=== PATIENT | male | born 1960 | race Caucasian/White ===

== ENCOUNTER 2020-04-19 21:50 | Inpatient (IN) | payer OTHER, SELFPAY ==
[2020-04-19] VITALS (9 sets, daily range): BP systolic 127–149; BP diastolic 82–114; PULSE 68–132; RESP 14–24; TEMP 36.4–36.5; O2SAT 94–99; BMI 29.0
--- NOTE | 2020-04-19 21:54 | XR_ITS ---
WS: [id number] PORTABLE CHEST HISTORY: Right-sided chest pain with nausea. COMPARISON: 09/22/2018 Lungs are clear and well expanded. No pleural effusion or pneumothorax. Cardiac size: Normal. Mediastinum/Aorta: Normal mediastinum. No osseous abnormality seen. XR/XR chest 1V portable [id number] IMPRESSION: Unremarkable portable chest.
[2020-04-19] MEDS: heparin 5,000 unit/mL INJ 1 mL 5000 UNIT IVP (22:04)
[2020-04-19] MEDS: ticagrelor 90 mg Tablet 180 MG PO (22:04)
[2020-04-19 22:06] LABS: Basophils # 0.1 10^3/uL (0.0-0.1); Basophils % 0.7 %; Eosinophils # 0.3 10^3/uL (0.0-0.8); Eosinophils % 2.9 %; Hematocrit 45.6 % (42.0-52.0); Hemoglobin 14.6 g/dL (11.7-16.6); Lymphocytes # 3.3 10^3/uL (0.8-4.8); Lymphocytes % 33.2 %; Mean Corpuscular Hemoglobin 27.5 pg (28.0-34.0); Mean Platelet Volume 9.1 fL (7.4-10.4); Monocytes # 0.8 10^3/uL (0.2-0.9); Monocytes % 8.3 %; Neutrophils # 5.43 10^3/uL (1.8-7.7); Neutrophils % 54.6 %; Nucleated Red Blood Cells % 0 %; Platelet Count 289 10^3/cmm (130-400); Red Cell Distribution Width 13.3 % (12.1-15.1)
[2020-04-19] MEDS: sodium chloride 0.9% 1,000 ML 999 ML IV (22:07)
--- NOTE | 2020-04-19 22:07 | W.ED.CHESTPA ---
HPI - Chest Pain General: Chief Complaint: Chest Pain Stated Complaint: chest pain Time Seen by Provider: 04/19/20 21:54 History of Present Illness: HPI narrative: 59-year-old male presents with right-sided chest discomfort, since yesterday. Says that he is hurting in his chest, and right shoulder. He says that he had a similar pain last year, was seen in the ER, and it ended up being a nerve problem . He said that he got some medicine in his IV at that point and it stopped. He says this pain is different, and that it does not go down his arm. He has not had significant shortness of breath or nausea. He has been diaphoretic. Does not have a prior history of coronary disease. MD complaint: chest pain Onset (ago): day(s) (2) Onset: during rest Pain location: right chest Pain radiation: none Quality: tightness, sharp and other (Comes in waves) Relieving factors: nothing Exacerbating factors: nothing Associated symptoms: Reports diaphoresis; Deny abdominal pain, dyspnea, fever(s), nausea, palpitations or vomiting Treatment prior to arrival: other (Fentanyl) Review of Systems Const: Reports: diaphoresis; Denies: fever(s) Eyes: Denies: change in vision ENMT: Denies: swelling of lips/tongue or sinus pain Card: Reports: chest pain; Denies: palpitations, irregular heart rhythm or swelling of feet/ankles Resp: Denies: dyspnea GI: Denies: abdominal pain, nausea or vomiting : Denies: difficulty urinating, dysuria or hematuria Musc: Denies: neck pain or back pain Skin/Breast: Denies: rash, pruritus or erythema Neuro: Denies: headache(s), dizziness or vertigo Psych: Denies: anxiety [facility] ED PFSH: Medical History (Updated 04/20/20 @ 00:33 by Ezequiel Estevez MD) Hypertension Neck pain Surgical History (Updated 04/20/20 @ 00:08 by Ezequiel Estevez MD) H/O neck surgery Family History (Updated 04/20/20 @ 00:33 by Ezequiel Estevez MD) Father Stroke Social History (Updated 04/20/20 @ 00:34 by Ezequiel Estevez MD) Smoking and tobacco status: current every day smoker cigarettes [ Other cigarette details: 1-.5 pack/day for last 30 years ] Alcohol intake: current Alcohol intake frequency: holidays/special occasions only Substance/Drug Use: never Lives independently: Yes Housing: House Current occupational status: disabled Physical Exam Const: GENERAL APPEARANCE: well developed and ill appearing ORIENTATION/CONSCIOUSNESS: Yes oriented to person, Yes oriented to place and Yes oriented to time HENMT: COMMON NORMALS: normocephalic, external ears normal and Normal external nose present HEAD & SCALP: normocephalic FACE & SINUS: normal facial exam NOSE: Normal external nose present and No nasal discharge present EXTERNAL EAR: Yes external ears normal Eye: COMMON NORMALS: Equal, round and reactive pupils present, EOMs intact bilaterally and conjunctivae normal EYELID: eyelids normal CONJUNCTIVA: Yes conjunctivae normal PUPIL: Yes Equal, round and reactive pupils present Neck/C-Spine: COMMON NORMALS: full ROM GENERAL: No tracheal deviation CERVICAL SPINE: Yes normal cervical lordosis and No Cervical spine tenderness Chest: COMMONS NORMALS: normal inspection of the chest CHEST: No tenderness Resp: COMMON NORMALS: clear to auscultation bilaterally EFFORT & INSPECTION: No tachypneic, No respiratory distress, No retractions, No uses accessory muscles and No tracheal deviation AUSCULTATION: clear to auscultation bilaterally, no rhonchi, no wheezes and lung sounds not diminished Cardio: COMMON NORMALS: regular rate and regular rhythm RATE: regular rate RHYTHM: regular rhythm HEART SOUNDS: no murmurs PERIPHERAL PULSES: radial pulses present GI: INSPECTION: No abdominal distension AUSCULTATION: No Hyperactive bowel sounds present and No Hypoactive bowel sounds present PALPATION: No Guarding due to palpation present (GI) and No Rigid due to palpation PERCUSSION: no dullness to percussion and no tympanic to percussion Neuro: SENSORIUM/ORIENTATION: Yes oriented to person, Yes oriented to place and Yes oriented to time Psych: COMMON NORMALS: mental status grossly normal Skin: COMMON NORMALS: no rashes or lesions noted GENERAL SKIN EXAM: no rashes or lesions noted Course Consultations: Consultation #1: Silvio Time: 21:59 Vital Signs: Vital signs: Vital Signs Temperature 97.7 F 04/19/20 23:38 Pulse Rate 68 04/20/20 02:30 Respiratory Rate 18 04/20/20 02:30 Blood Pressure 100/76 04/20/20 02:30 Pulse Oximetry 99 04/20/20 02:30 MDM - Chest Pain MDM Narrative: Medical decision making narrative: 59-year-old male presents with right sided chest discomfort, diaphoresis. This been going on since yesterday. It comes in waves. Thought that this might be due to a nerve problem. His initial EKG shows sinus rhythm in the 60s with a normal axis. There is ST segment elevation in [address] depression in aVL. He has Q's present in the inferior leads as well. He was hypertensive on arrival. Blood pressure currently 132/80 1:07 nitroglycerin and morphine. His heart rates in the 70s. Saturations are 98%. Cardiac catheterization lab team was activated after obtaining the EKG, and cardiology was consulted. They are on their way in. Lab Data: Attestation: I reviewed the patient's lab results. Labs: Lab Results 04/19/20 04/19/20 04/19/20 Range/Units 22:00 22:00 22:00 WBC 10.0 (4.0-10.0) 10^3/ uL RBC 5.30 (4.1-5.3) 10^6/u L Hgb 14.6 (11.7-16.6) g/dL Hct 45.6 (42.0-52.0) % MCV 86.0 (80-94) fL MCH 27.5 L (28.0-34.0) pg MCHC 32.0 (30.0-36.0) g/dL RDW 13.3 (12.1-15.1) % Plt Count 289 (130-400) 10^3/c mm MPV 9.1 (7.4-10.4) fL Neut % (Auto) 54.6 % Lymph % (Auto) 33.2 % [place] % (Auto) 8.3 % Eos % (Auto) 2.9 % Baso % (Auto) 0.7 % Neut # (Auto) 5.43 (1.8-7.7) 10^3/u L Lymph # (Auto) 3.3 (0.8-4.8) 10^3/u L [place] # (Auto) 0.8 (0.2-0.9) 10^3/u L Eos # (Auto) 0.3 (0.0-0.8) 10^3/u L Baso # (Auto) 0.1 (0.0-0.1) 10^3/u L Nucleated RBC % (a uto) 0 % Nucleated RBCs # 0.0 /100WBC PT 12.50 (12.1-14.9) SECO NDS INR 0.90 (0.8-1.2) APTT 27.1 (23.9-36.7) SECO NDS Sodium 136 (136-145) mmol/L Potassium 4.8 (3.5-5.1) mmol/L Chloride 103 (98-107) mmol/L Carbon Dioxide 24 (22-29) mmol/L Anion Gap 13.8 (5-19) BUN 14 (6-20) mg/dL Creatinine 1.1 (0.7-1.2) mg/dL GFR Calculation 69.0 L (90-130) mL/min Glucose 137 H (65-115) mg/dL Calculated Osmolal ity 280 L (285-295) mOsm/k g Calcium 9.6 (8.5-10.5) mg/dL Total Bilirubin 0.3 (0.15-1.2) mg/dL AST 17 (0-40) U/L ALT 22 (0-41) U/L Alkaline Phosphata se 98 (40-130) IU/L Creatine Kinase 79 (39-308) U/L Troponin T Baselin e (0-15) ng/L NT-Pro-B Natriuret Pep 102 (0-125) pg/mL Total Protein 7.3 (6.6-8.7) g/dL Albumin 4.1 (3.5-5.2) g/dL Globulin 3.2 (1.3-4.6) g/dL Triglycerides (0-150) mg/dL Cholesterol (0-200) mg/dL LDL Cholesterol, C alc (50-129) mg/dL Total VLDL Cholest rachael (0-30) mg/dL HDL Cholesterol (60-100) mg/dL Cholesterol/HDL Ra brent (1.0-5.00) mg/dL 04/19/20 04/19/20 Range/Units 22:00 22:00 WBC (4.0-10.0) 10^3/ uL RBC (4.1-5.3) 10^6/u L Hgb (11.7-16.6) g/dL Hct (42.0-52.0) % MCV (80-94) fL MCH (28.0-34.0) pg MCHC (30.0-36.0) g/dL RDW (12.1-15.1) % Plt Count (130-400) 10^3/c mm MPV (7.4-10.4) fL Neut % (Auto) % Lymph % (Auto) % [place] % (Auto) % Eos % (Auto) % Baso % (Auto) % Neut # (Auto) (1.8-7.7) 10^3/u L Lymph # (Auto) (0.8-4.8) 10^3/u L [place] # (Auto) (0.2-0.9) 10^3/u L Eos # (Auto) (0.0-0.8) 10^3/u L Baso # (Auto) (0.0-0.1) 10^3/u L Nucleated RBC % (a uto) % Nucleated RBCs # /100WBC PT (12.1-14.9) SECO NDS INR (0.8-1.2) APTT (23.9-36.7) SECO NDS Sodium (136-145) mmol/L Potassium (3.5-5.1) mmol/L Chloride (98-107) mmol/L Carbon Dioxide (22-29) mmol/L Anion Gap (5-19) BUN (6-20) mg/dL Creatinine (0.7-1.2) mg/dL GFR Calculation (90-130) mL/min Glucose (65-115) mg/dL Calculated Osmolal ity (285-295) mOsm/k g Calcium (8.5-10.5) mg/dL Total Bilirubin (0.15-1.2) mg/dL AST (0-40) U/L ALT (0-41) U/L Alkaline Phosphata se (40-130) IU/L Creatine Kinase (39-308) U/L Troponin T Baselin e 19 H (0-15) ng/L NT-Pro-B Natriuret Pep (0-125) pg/mL Total Protein (6.6-8.7) g/dL Albumin (3.5-5.2) g/dL Globulin (1.3-4.6) g/dL Triglycerides 129 (0-150) mg/dL Cholesterol 225 H (0-200) mg/dL LDL Cholesterol, C alc 168 H (50-129) mg/dL Total VLDL Cholest rachael 26 (0-30) mg/dL HDL Cholesterol 31 L (60-100) mg/dL Cholesterol/HDL Ra brent 7.26 H (1.0-5.00) mg/dL Discharge Plan Discharge Patient Disposition: Admitted As Inpatient Admit Provider: Ezequiel Anguiano Clinical Impression: ST elevation myocardial infarction (STEMI) Qualifiers: Involved coronary artery: right coronary artery Qualified Code(s): I21.11 - ST elevation (STEMI) myocardial infarction involving right coronary artery Condition: Stable Discharge Date/Time: 04/19/20 22:34 Coding Level of Care Code ED Web Services Architect for Nichol Fwdary Exam Comprehensive
[2020-04-19] MEDS: morphine 4 mg/mL SDV 1 mL IVP ×2 (22:10→22:30)
[2020-04-19] MEDS: ondansetron 2 mg/ML SDV 2 mL 4 MG IVP (22:11)
[2020-04-19 22:20] LABS: Partial Thromboplastin Time 27.1 SECONDS (23.9-36.7)
[2020-04-19 22:27] LABS: Troponin(5th) Baseline 19 ng/L (0-15)
--- NOTE | 2020-04-19 22:29 | XACV_ITS ---
Ht: 180 cm Wt: 100 kg BSA: 2.26 m2 Gender: Male : 1960 Exam Priority: Routine Procedure(s): Procedure Description: Diagnostic procedure Procedure Description: Left Heart Catheterization Procedure Description: Right Heart Catheterization Diagnostic Findings LM has 0% stenosis. CX has 0% stenosis. RCA has 0% stenosis. Proximal Left Anterior Descending Coronary Artery: Severe 100% stenosis, NIDIA: 0 flow. Coronary angiography shows right dominance. PCI Indication: Other Interventional Findings Proximal Left Anterior Descending Coronary Artery: 100% stenosis treated with AB TREK 2.50X12 RX BALLOON. 0% residual stenosis, NIDIA: 3 flow. I probed proximal LAD lesion with wire somewhat difficulty I was able to cross it balloon angioplasty performed showed atretic vessel since patient has left to right collaterals and it appeared to be chronically occluded we decided to opt for medical management. Conclusions Proximal Left Anterior Descending Coronary Artery was treated with Balloon. There is severe coronary artery disease with one vessel disease. Indication for angiogram: Abnormal EKG/chest pain highly suspicious for acute coronary syndrome . #1 Left main is normal#2 LAD has proximal chronic occlusion#3 Left circumflex is nondominant without significant stenosis#4 RCA is a dominant vessel which has ectasia without significant stenosis, RCA to distal LAD collaterals filling it retrogradely. Recommendations Continue current medical management and risk factor modification. Diagnostic RX Recommendation: medical therapy and/or counseling Clinical Evaluation EBL: 5mL-10mL Procedural Details Pre-Procedure Time Out. Identified patient by full name and date of as verbalized by the patient/guarantor. Does the consent match the physician's order: N/A Emergent; Informed Consent not obtained due to time critical life threat. Accurate & Complete Informed Consent: N/A Emergent; Informed Consent not obtained due to time critical life threat. Inpatient/Outpatient History & Physical on Chart: N/A Emergent; Informed Consent not obtained due to time critical life threat. If H&P is completed, is and addenduem needed: N/A Emergent; Informed Consent not obtained due to time critical life threat; If yes, is the addendum complete: N/A Emergent; Informed Consent not obtained due to time critical life threat. Visualize and Verify Site with Patient/Guarantor: N/A. Relevant Radiology Images available: N/A Emergent; Informed Consent not obtained due to time critical life threat. Pre-op teaching completed and patient verbalized understanding. The risks, benefits, and alternatives of sedation and/or procedure were discussed by physician. The patient agrees to continue. Procedure started. Correct patient, site and procedure confirmed by cath team. Current diagnosis: STEMI. PERRLA. Strong, equal hand print production coordinator bilaterally. Lungs clear x 5 lobes. IV Site on Arrival: 18 gauge in the right anticubital. IV Site on Arrival: 20 gauge in the left hand. IV Fluids: 0.9% NaCl at KVO. 0 mL infused prior to lab nurse. Oxygen started at 2liters/min via nasal canula. right groin was prepped with chloroprep then draped in the usual sterile fashion. Physician notified. Baseline sample Acquired. HR: 77 BPM. Patient's family unavailable. Equipment: 5F - Femoral. Heparinized Saline (2 units/mL), 1000 mL bag. Kit, Micropuncture. Cardiac Cath Pack. ACIST Manifold Kit Model BT 2000. Physician arrived. Physician scrubbed in. Immediate Pre-Procedure Time Out. Correct Patient: Yes; Correct Procedure: Yes; Correct Site: Yes; Correct Patient Position: Yes; Correct Supplies: Yes; Dried Flammable Prep: Yes; Blood Products Available: N/A Emergent; Informed Consent not obtained due to time critical life threat;. Lidocaine 1% infiltrated to the right groin. Arterial access obtained with micropuncture set. Inventory is JJ 5F 11cm Kamini Plus Sheath. A 5 [place] citizen JL4 catheter in over wire. nc increased to 4 lpm. Multiple views taken of right coronary artery. A 5 [place] citizen JR4 catheter in over wire. Multiple views taken of left coronary artery. Catheter out. Runthrough guidewire was advanced through the guide catheter to lesion in the prox LAD. Balloon inserted to lesion in the prox LAD. Inflation number : 1 A AB TREK 2.50X12 RX BALLOON was prepped and advanced across the Prox LAD , then inflated to 12 CANDICE for 0:07 seconds. Inflation number: 2 The AB TREK 2.50X12 RX BALLOON was reinflated across the Prox LAD, to 12 CANDICE for 0:06 seconds. Results checked. Inflation number: 3 The AB TREK 2.50X12 RX BALLOON was reinflated across the Prox LAD, to 12 CANDICE for 0:06 seconds. Inflation number: 4 The AB TREK 2.50X12 RX BALLOON was reinflated across the Prox LAD, to 16 CANDICE for 0:09 seconds. Stent balloon and wire out. Guide catheter out. Sheath(s) sutured into position with 2-0 silk and sterile 4x4's and Op-site applied over the site. No oozing or signs and symptoms of hematoma noted. PERRLA. Strong, equal hand print production coordinator bilaterally. No VTE prophylaxis required. Medication's Wasted: Heparin = 4000 units. Total IV fluids: 160 mL. PCI Indication: STEMI. Complications: none. Estimated blood loss: 5mL-10mL. Perclose placed without complications. No signs or symptoms of hematoma noted. Sterile dressing applied per usual sterile fashion.[id number] 2021-06-20 exp. Procedure completed. Patient transferred by bed to 1st floor. Vital chart was stopped. Site: Right Femoral artery Sheath Size: 5 Fr Hemostasis Success: Unsuccessful Site: Right Femoral artery Sheath Size: 6 Fr Hemostasis Success: Unsuccessful Site: Right Radial artery Sheath Size: 7 Fr Hemostasis Success: Unsuccessful Procedure Medications Start: 10:40 PM Stop: 10:40 PM Medication: Versed Amount: 2 mg Route: I.V. Start: 10:40 PM Stop: 10:40 PM Medication: Fentanyl Amount: 50 mcg Route: I.V. Start: 10:46 PM Stop: 10:46 PM Medication: Versed Amount: 2 mg Route: I.V. Start: 10:46 PM Stop: 10:46 PM Medication: Fentanyl Amount: 50 mcg Route: I.V. Start: 11:04 PM Stop: 11:04 PM Medication: Heparin Amount: 5000 units Route: I.V. Start: 11:07 PM Stop: 11:07 PM Medication: Versed Amount: 1 mg Route: I.V. I, the attending physician, have reviewed and verified all procedure medications. Yes, all medications given per verbal order Report Signatures Interventional Workflow - Finalized by: Ezequiel Anguiano MD on 05/02/2020 2:28:27 PM Diagnostic Workflow - Finalized by:Ezequiel Anguiano MD on 05/02/2020 2:28:27 PM
--- NOTE | 2020-04-19 22:32 | PC.NURSE ---
cath lab technologist here to transport patient
[2020-04-19 22:35] LABS: Alanine Aminotransferase 22 U/L (0-41); Albumin Level 4.1 g/dL (3.5-5.2); Alkaline Phosphatase 98 IU/L (40-130); Anion Gap 13.8 (5-19); Aspartate Amino Transferase 17 U/L (0-40); Blood Urea Nitrogen 14 mg/dL (6-20); Calcium 9.6 mg/dL (8.5-10.5); Carbon Dioxide 24 mmol/L (22-29); Chloride 103 mmol/L (98-107); Creatine Phosphokinase 79 U/L (39-308); Globulin 3.2 g/dL (1.3-4.6); Glucose 137 mg/dL (65-115); NT Pro B Type Natriuretic Pept 102 pg/mL (0-125); Osmolality Calculated 280 mOsm/kg (285-295); Potassium 4.8 mmol/L (3.5-5.1); Sodium 136 mmol/L (136-145); Total Bilirubin 0.3 mg/dL (0.15-1.2); Total Protein 7.3 g/dL (6.6-8.7)
--- NOTE | 2020-04-19 22:41 | P.HP_ITS ---
Providers/Chief Complaint Primary Care Provider: [place] [facility] Chief Complaint: chest pain History of Present Illness Santosh Turner is a 59 year old male Review of Systems Const: Reports: diaphoresis; Denies: fever(s) Eyes: Denies: change in vision ENMT: Denies: swelling of lips/tongue or sinus pain Card: Reports: chest pain; Denies: palpitations, irregular heart rhythm or swelling of feet/ankles Resp: Denies: dyspnea GI: Denies: abdominal pain, nausea or vomiting : Denies: difficulty urinating, dysuria or hematuria Musc: Denies: neck pain or back pain Skin/Breast: Denies: rash, pruritus or erythema Neuro: Denies: headache(s), dizziness or vertigo Psych: Denies: anxiety Medications/Allergies Allergies Allergy/AdvReac Type Severity Reaction Status Date / Time Penicillins Allergy ALGY-Hives Verified 04/19/20 22:03 Vitals/I&O/Wt Last Vital Signs Temp 97.5 F L 04/19/20 21:50 Pulse 73 04/19/20 22:32 Resp 22 H 04/19/20 22:32 BP 142/82 04/19/20 22:32 Pulse Ox 99 04/19/20 22:32 Weight last 48 hrs Weight 220 lb Data : 04/19/20 22:00 04/19/20 22:00 Coding Level of Care Code Acute Cd Reactor Operator Head for Nichol Mancini
--- NOTE | 2020-04-19 23:19 | PM.CONSULT ---
Providers/Reason For Consult Consulting Physican/Specialty*: Ezequiel Anguiano MD Reason for Consult*: Right side chest pain suspicious for acute coronary syndrome, abnormal EKG Requesting Physcian: Dr. Wilkes from emergency room Attending Physician: Ezequiel Anguiano MD Primary Care Provider: [facility] History of Present Illness History of Present Illness Santosh Turner is a 59 year old male past medical history significant for continuous tobacco abuse 1-1/2 pack/day for many years. History of radiculopathy with neck pain and arm pains presented with worsening of right side shoulder arm pain which is 10 /10 on the pain scale. Twelve-lead EKG performed which showed old right inferior SD with lateral 1 aVL and v2 new ST depression. Since patient continues to have worsening of right-sided chest pain which he thinks is worst pain of his life and because of the fact he has this interim new EKG changes we took him to the [facility]. He was noted to have chronically occluded LAD with right to left faint collaterals filling LAD from its distal end. LAD appeared to be atretic. I was able to cross through LAD into diagonal. I ballooned since it appeared to be chronic highly calcified and atretic and because of the fact I was convinced that it is not an acute event we stopped the procedure there. Due to right arm pain I was not able to go through from radial approach. [address] through the right groin. Patient had received Brilinta 180 mg aspirin 325 mg and in general of total 10,000 unit of heparin. I have tried to deployed Perclose but remain unsuccessful. Plan is to discontinue sheath once PTT will be below 45. We will also obtain echocardiogram in the morning. He will be admitted to medicine service and we will continue to consult on him. Review of Systems Const: Reports: fatigue, malaise and diaphoresis; Denies: fever(s), chills or body aches Eyes: Denies: change in vision ENMT: Denies: throat pain, swelling of lips/tongue or sinus pain Card: Reports: chest pain; Denies: palpitations, irregular heart rhythm, swelling of feet/ankles, syncope, pre-syncope, dyspnea on exertion or orthopnea Resp: Denies: dyspnea GI: Denies: abdominal pain, nausea or vomiting : Denies: flank pain, difficulty urinating, dysuria or hematuria Musc: Reports: neck pain and extremity pain; Denies: back pain, joint redness, joint stiffness, muscle cramps or decrease in muscle mass Skin/Breast: Reports: lesions (Hyperpigmented lesions all over his trunk); Denies: rash, pruritus or erythema Neuro: Reports: numbness in extremities and confusion; Denies: headache(s), weakness in extremities, sensory changes, lack of coordination, dizziness or vertigo Psych: Reports: memory loss; Denies: anxiety Endo: Denies: polyuria Beny/Lymph: Denies: easy bruising All/Imm: Denies: urticaria Meds/Allergies Home Medications and Allergies Home Medications Medication Instructions Recorded Confirmed Last Taken Type propranolol 60 mg PO BID 04/20/20 04/20/20 04/19/20 History Allergies Allergy/AdvReac Type Severity Reaction Status Date / Time Penicillins Allergy ALGY-Hives Verified 04/20/20 00:03 Additional Medication Information Active Medications Generic Name Dose Route Start Last Admin Trade Name Freq PRN Reason Stop Dose Admin Acetaminophen 650 mg 04/19/20 23:37 Tylenol PO Q6H PRN MILD PAIN Al Hydrox/Mg Hydrox/Simethicone 30 ml 04/19/20 23:37 Maalox PO Q15M PRN INDIGESTION Aspirin 81 mg 04/20/20 09:00 04/20/20 09:26 Aspirin Ec PO 81 mg DAILY ARIANNA Administration Atorvastatin Calcium 40 mg 04/20/20 21:00 Lipitor PO BEDTIME ARIANNA Atropine Sulfate 0.5 mg 04/19/20 23:37 Atropine IVP PRN PRN Symptomatic bradycardia Duloxetine HCl 30 mg 04/20/20 09:00 04/20/20 09:26 Cymbalta PO 30 mg DAILY ARIANNA Administration Fentanyl 50 mcg 04/20/20 06:00 04/20/20 08:12 Sublimaze IVP 50 mcg ONCE PRN Administration SEVERE PAIN Sodium Chloride 1,000 mls @ 75 mls/hr 04/20/20 00:01 04/20/20 00:44 Sodium Chloride 0.9% IV 75 mls/hr .[id number] ARIANNA Administration Lisinopril 10 mg 04/20/20 09:00 04/20/20 09:26 Prinivil PO 10 mg DAILY ARIANNA Administration Magnesium Hydroxide 30 ml 04/19/20 23:37 Milk Of Magnesia PO DAILY PRN CONSTIPATION Morphine Sulfate 2 mg 04/20/20 00:01 Morphine IVP Q4H PRN SEVERE PAIN Naloxone HCl 0.1 mg 04/19/20 23:37 Narcan IVP Q2M PRN RESPIRATORY RATE < 8/MIN Nitroglycerin 0.4 mg 04/19/20 23:37 Nitrostat SUBLINGUAL Q5M PRN CHEST PAIN Senna/Docusate Sodium 1 tab 04/20/20 09:00 04/20/20 09:28 Senna-S PO Not Given DAILY ARIANNA Temazepam 15 mg 04/19/20 23:37 Restoril PO BEDTIME PRN INSOMNIA Penicillins Allergy (Verified 04/20/20 00:03) ALGY-Hives PFSH Acute PFSH: Medical History (Updated 04/20/20 @ 10:44 by Keiry Mcleod MD) Hypertension Neck pain Surgical History (Updated 04/20/20 @ 00:08 by Ezequiel Estevez MD) H/O neck surgery Family History (Updated 04/20/20 @ 00:33 by Ezequiel Estevez MD) Father Stroke Social History (Updated 04/20/20 @ 05:11 by Penelope Green RN) Smoking and tobacco status: current every day smoker cigarettes [ Other cigarette details: 1-.5 pack/day for last 30 years ] Alcohol intake: current Alcohol intake frequency: holidays/special occasions only Substance/Drug Use: never Lives independently: Yes Housing: House Current occupational status: disabled Vitals/I&O/Wt Last Vital Signs Temp 97.5 F L 04/19/20 21:50 Pulse 73 04/19/20 22:32 Resp 22 H 04/19/20 22:32 BP 142/82 04/19/20 22:32 Pulse Ox 99 04/19/20 22:32 Weight last 48 hrs Weight 220 lb Physical Exam Narrative: EXAM NARRATIVE: GENERAL: Patient is alert, awake and oriented x3. Moderate severe distress NECK: No jugular vein distension. HEENT: No cyanosis. No icterus. No pallor. HEART: Regular S1 and S2. No murmur, rub or gallop. LUNGS: Clear to auscultate bilaterally. ABDOMEN: Soft, nontender and nondistended. Positive bowel sounds. No guarding, rebound or tenderness. CENTRAL NERVOUS SYSTEM: Grossly nonfocal. EXTREMITIES: Lower extremities with 1+ edema bilaterally. Pulses palpable in the lower extremities, both dorsalis pedis and posterior tibial. A&P Assessment and plan (1) Chest pain: Patient presented with worsening of right side shoulder chest and arm pain along with abnormal EKG as defined above. He is high risk for acute coronary syndrome due to interim abnormal changes in the EKG he was taken to the [facility]. He was noted to have chronically occluded proximal LAD, nondominant small circumflex and dominant right coronary artery with good left to right collaterals fill retrogradely to LAD. We tried and probe the LAD which appeared to be atretic and calcified. Since it is chronically occluded and not the immediate etiology thought to treated medically. Echocardiogram will be obtained in the morning. We will optimize his medicine and in the future will may obtain viability study of the anterior wall to further advise. For now his care will be taken over by medicine as most likely right-sided shoulder and arm pain could be from radiculopathy. We will continue to participate in his care. Status: Acute (2) Hypertension: Blood pressure is controlled continue current medicines. Status: Chronic Qualifiers: Hypertension type: essential hypertension Qualified Code(s): I10 - Essential (primary) hypertension Consult Attestations Medical Necessity Statement: As per medicine and surgery. Coding Level of Care Code New Pt Acute Ornithology Teacher for Nichol Mancini Patient Type New History Comprehensive Exam Comprehensive Medical Decision Making High Complexity Diagnoses Chest pain R07.9 Hypertension I10 Hypertension type: essential hypertension
--- NOTE | 2020-04-19 23:41 | P.HP_ITS ---
Providers/Chief Complaint Primary Care Provider: [facility] Chief Complaint: chest pain History of Present Illness Santosh Turner is a 59 year old male who carries history of hypertension came in with chief complaint of right-sided arm pain. patient is stating that his right arm has been hurting for last 1 year since his neck surgery, he is stating that a cyst was removed from his neck area, he mostly gets symptoms(numbness, tingling, fatigue of right arm) after lifting heavy objects, recently he lifted a garbage can and then afterwards started experiencing extreme right arm pain which got worse today, he started this pain in his right side of his chest which was radiating towards his right shoulder which prompted his ER visit. At home he has not noticed facial droop, choking on food, nausea, vomiting, diarrhea, fever, frequent falls, motor weakness, blurry vision. Patient is leading a sedentary lifestyle, is not endorsing proximal muscle weakness symptoms. Denying history of diabetes, hypothyroidism, stroke in the past. STEMI alert was called in the ER for inferior wall ST segment elevation CO with ST depression in lead I aVL, he went to the [facility], he has chronic occlusion of LAD with good collateral supply, Dr. Marin is planning to do an echo in the morning, he is not convinced that his symptoms are secondary to coronary artery ischemia. I saw the patient after cardiac catheterization(right groin, femoral artery, sheath is in place), patient seems to be a bit drowsy after getting fentanyl, morphine in the OR. Normal hemodynamics, able to give me above-mentioned detail. He seems a bit forgetful and not able to recall his antihypertensive regimen. CSU nurse also present at the bedside Of note patient had 2 visits in the ER last year with similar complaint of right arm pain. Review of Systems Const: Reports: fatigue and malaise; Denies: fever(s), chills or body aches Eyes: Denies: change in vision ENMT: Denies: throat pain Card: Reports: chest pain; Denies: palpitations, irregular heart rhythm, swelling of feet/ankles, syncope, pre-syncope, dyspnea on exertion or orthopnea Resp: Denies: dyspnea GI: Denies: abdominal pain : Denies: flank pain Musc: Reports: neck pain and extremity pain; Denies: joint redness, joint stiffness, muscle cramps or decrease in muscle mass Skin/Breast: Reports: lesions (Hyperpigmented lesions all over his trunk) Neuro: Reports: numbness in extremities and confusion; Denies: headache(s), weakness in extremities, sensory changes or lack of pharmacy operations coordinator rdination Psych: Reports: memory loss Endo: Denies: polyuria Beny/Lymph: Denies: easy bruising All/Imm: Denies: urticaria Medications/Allergies Allergies Allergy/AdvReac Type Severity Reaction Status Date / Time Penicillins Allergy ALGY-Hives Verified 04/20/20 00:03 PFSH Acute PFSH: Medical History (Updated 04/20/20 @ 00:33 by Ezequiel Estevez MD) Hypertension Neck pain Surgical History (Updated 04/20/20 @ 00:08 by Ezequiel Estevez MD) H/O neck surgery Family History (Updated 04/20/20 @ 00:33 by Ezequiel Estevez MD) Father Stroke Social History (Updated 04/20/20 @ 00:34 by Ezequiel Estevez MD) Smoking and tobacco status: current every day smoker cigarettes [ Other cigarette details: 1-.5 pack/day for last 30 years ] Alcohol intake: current Alcohol intake frequency: holidays/special occasions only Substance/Drug Use: never Lives independently: Yes Housing: House Current occupational status: disabled Vitals/I&O/Wt Last Vital Signs Temp 97.5 F L 04/19/20 21:50 Pulse 73 04/19/20 22:32 Resp 22 H 04/19/20 22:32 BP 142/82 04/19/20 22:32 Pulse Ox 99 04/19/20 22:32 Weight last 48 hrs Weight 99.79 kg Physical Exam Narrative: EXAM NARRATIVE: Middle-age male Unkempt appearance Patient appears drowsy, Received multiple dose of opioids in the OR S1, S2 no tachycardia heart failure Abdomen soft nontender bowel sound present Lungs are clear to auscultation Neurologically no focal deficit appreciated Skin shows hyperpigmented chronic lesions of upper extremity and trunk area Lower extremity no edema gangrene or ulcer Right femoral artery sheath is in place He has good right-sided handgrip, no sensory loss, good wrist flexion extension, finger abduction, adduction, good bicep brachii function, No muscle mass loss Patient able to flex his neck without any pain Data : 04/19/20 22:00 04/19/20 22:00 A&P Assessment and plan (1) Chest pain: Status: Acute (2) Neck pain: Status: Acute (3) ST elevation myocardial infarction (STEMI): Status: Acute Qualifiers: Involved coronary artery: right coronary artery Qualified Code(s): I21.11 - ST elevation (STEMI) myocardial infarction involving right coronary artery Additional A&P Information Right-sided chest pain STEMI alert was called in the ER Patient went to [facility], chronic occlusion of LAD noticed with good collateral supply Currently review cardiology cath report for details Dr. 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 Would use analgesics along opioids for now, he still has right femoral artery sh eath which will be removed in 2 hours depending on APTT level He might need evaluation for carpal tunnel I will check TSH, hemoglobin A1c Patient has no proximal muscle weakness signs, no skin rash appreciated other than hyperpigmented lesions of trunk Good radial radial equal pulses, no vascular compromise noted Nicotine dependence [id number] smoking history Need extensive counseling on smoking cessation and use of nicotine replacement therapy Cardiac diet Start DVT prophylaxis tomorrow after removal of femoral artery sheath Echo in the morning Full code Attestations Medical Necessity Statement*: Anticipating stay in the hospital course more than 2 midnights need evaluation for right-sided chest pain, STEMI alert was called, [facility] Lathe Operator activated Time Spent in Patient Care: (>than 50% of time spent in counselling and/or direct pt care on unit) . 50mins Coding Level of Care Code Acute Funder for Nichol Mancini Diagnoses Chest pain R07.[address] elevation myocardial infarction (STEMI) I21.11 Involved coronary artery: right coronary artery
--- NOTE | 2020-04-19 23:51 | PC.NURSE ---
PT ARRIVED TO ROOM 112-1 VIA BED FROM [facility]. PT IS MOANING AND WILL NOT LAY STILL. BP 143/96, SPO2 99%, HR 71, RR 12. THERE IS A 7FR SHEATH IN THE RIGHT GROIN AND CONNECTED TO A PRESSURE BAG. PT C/O 10/10 PAIN IN RIGHT LEG AND NECK. WILL CONTINUE TO MONITOR.
[2020-04-20] VITALS (40 sets, daily range): BP systolic 95–146; BP diastolic 66–98; PULSE 58–77; RESP 9–27; TEMP 36.4–36.7; O2SAT 94–100
--- NOTE | 2020-04-20 00:07 | PC.NURSE ---
Patient states he takes one medication at home for blood pressure, but he doesn't know what it is. Unable to complete med rec at this time.
--- NOTE | 2020-04-20 00:11 | PC.NURSE ---
Patient states that his right shoulder hurts. Patient states it always hurts due to his arthritis.
--- NOTE | 2020-04-20 00:12 | PC.NURSE ---
Patient has been educated on post-cath activity restrictions and bed rest and verbalized understanding. Patient has been oriented to his room and has call light within reach.
--- NOTE | 2020-04-20 00:13 | PC.NURSE ---
Dr. Estevez in room to see patient at this time.
--- NOTE | 2020-04-20 00:41 | CT_ITS ---
WS: [id number] CT THORACIC SPINE HISTORY: Pain in right arm TECHNIQUE: Contiguous 2.5 mm axial images are reviewed to thoracic spine. Images are reformatted in s agittal and coronal planes. All CT scans at [facility] use at least one of these dose opt imization techniques: automated exposure control; mA and/or kV adjustment per patient size (includes targeted exams where dose is matched to clinical indication); or iterative reconstruction. DLP: 2425.46 mGy.cm COMPARISON: None available. Normal thoracic alignment. Disc spaces and vertebral body heights are well-preserved. No fractures or destructive bone process. No central disc protrusions, stenosis or foraminal stenosis. RIGHT upper lobe opacification is more than expected for dependent change. Consistent with a RIGHT up per lobe pneumonia. There is both groundglass and subsolid consolidation. There is mild thickening of the RIGHT upper lobe bronchus. CT/CT thoracic spin wo con* [id number] IMPRESSION: 1. No thoracic spine stenosis or destructive process. 2. RIGHT upper lobe pneumonia with proximal RIGHT upper lobe bronchial wall th ickening. Recommend short-term follow-up after treatment for pneumonia to be vyas re these findings resolve and there is no underlying neoplasm. Recommend follow -up chest CT with IV contrast after treatment for pneumonia.
[2020-04-20] MEDS: sodium chloride 0.9% 1,000 ML 75 ML IV (00:44)
[2020-04-20 01:57] LABS: Chol HDL Ratio 7.26 mg/dL (1.0-5.00); Cholesterol 225 mg/dL (0-200); HDL Cholesterol 31 mg/dL (60-100); LDL Cholesterol Calculated 168 mg/dL (50-129); Triglycerides 129 mg/dL (0-150); VLDL Cholestrol Calculation 26 mg/dL (0-30)
[2020-04-20 02:21] LABS: Basophils % 0.3 %; Eosinophils # 0.1 10^3/uL (0.0-0.8); Eosinophils % 0.6 %; Hematocrit 46.6 % (42.0-52.0); Hemoglobin 14.6 g/dL (11.7-16.6); Lymphocytes # 2.5 10^3/uL (0.8-4.8); Lymphocytes % 21.9 %; Mean Corpuscular HGB Conc 31.3 g/dL (30.0-36.0); Mean Corpuscular Hemoglobin 27.9 pg (28.0-34.0); Mean Corpuscular Volume 88.9 fL (80-94); Mean Platelet Volume 9.5 fL (7.4-10.4); Monocytes # 0.5 10^3/uL (0.2-0.9); Monocytes % 4.5 %; Neutrophils # 8.27 10^3/uL (1.8-7.7); Neutrophils % 72.4 %; Nucleated Red Blood Cells % 0 %; Platelet Count 263 10^3/cmm (130-400); Red Blood Count 5.24 10^6/uL (4.1-5.3); Red Cell Distribution Width 13.5 % (12.1-15.1); White Blood Count 11.4 10^3/uL (4.0-10.0)
[2020-04-20 02:31] LABS: Anion Gap 10.1 (5-19); Blood Urea Nitrogen 13 mg/dL (6-20); Calcium 8.8 mg/dL (8.5-10.5); Carbon Dioxide 27 mmol/L (22-29); Chloride 105 mmol/L (98-107); Glomerular Filtration Rate 62.4 mL/min (90-130); Glucose 131 mg/dL (65-115); Osmolality Calculated 282 mOsm/kg (285-295); Potassium 5.1 mmol/L (3.5-5.1); Sodium 137 mmol/L (136-145)
--- NOTE | 2020-04-20 02:41 | PC.NURSE ---
Patient's right groin site still WNL. Patient reeducated on bed rest restrictions. Pedal pulse present. Will monitor.
[2020-04-20 02:42] LABS: Thyroid Stimulating Hormone 0.73 uIU/mL (0.27-4.20)
[2020-04-20 02:51] LABS: Partial Thromboplastin Time 157.2 SECONDS (23.9-36.7)
[2020-04-20 03:04] LABS: Estmated Average Glucose 117; Hemoglobin A1C 5.7 % (4.0-6.0)
--- NOTE | 2020-04-20 04:46 | PC.NURSE ---
Called lab to see why 0400 PTT hasn't resulted yet. Lab states that it is running.
--- NOTE | 2020-04-20 05:37 | PC.NURSE ---
Contacted lab about PTT still not resulted.
--- NOTE | 2020-04-20 06:00 | USCV_ITS ---
Santosh Turner Age: 59 Gender: M : 1960 Exam Date: 04/20/2020 09:21 Ordering Phys: Ezequiel Anguiano MD ([email or web address]) Technologist: Kristine Murillo Exam Location: [facility] [place] Indication: chest pain BP: / HR: 60 Rhythm: Sinus Technical Quality: Technically difficult study MEASUREMENTS (Male / Female) Normal Values 2D ECHO LV Diastolic Diameter PLAX 3.5 cm 4.2 - 5.9 / 3.9 - 5.3 cm LV Systolic Diameter PLAX 2.1 cm IVS Diastolic Thickness 1.3 cm 0.6 - 1.0 / 0.6 - 0.9 cm IVS Systolic Thickness 1.6 cm LVPW Diastolic Thickness 0.8 cm 0.6 - 1.0 / 0.6 - 0.9 cm LVPW Systolic Thickness 1.6 cm LVOT Diameter 2.1 cm LV Ejection Fraction 2D Teich 70.1 % LA Diameter 3.1 cm LA Width 3.3 cm LA Height 4.5 cm RA Width 3.4 cm RA Height 3.3 cm M-MODE LV Diastolic Diameter MM 5.1 cm 4.2 - 5.9 / 3.9 - 5.3 cm LV Systolic Diameter MM 2.3 cm LV Ejection Fraction MM Teich 85.8 % IVS Diastolic Thickness MM 0.9 cm 0.6 - 1.0 / 0.6 - 0.9 cm IVS Systolic Thickness MM 1.7 cm LVPW Diastolic Thickness MM 1.0 cm 0.6 - 1.0 / 0.6 - 0.9 cm LVPW Systolic Thickness MM 1.7 cm Aortic Annulus Diameter 3.6 cm LA Ao Ratio MM 0.9 MV E Point Septal Separation 0.3 cm DOPPLER MV E' Velocity 9.0 cm/s PV Peak Velocity 74.0 cm/s RV Acceleration Time 0.1 s FINDINGS Left Ventricle Normal left ventricular cavity size. Moderately decreased left ventricular systolic function. Left ventricular ejection fraction is estimated at 45 %. There appeared to be anterior septal wall severe hypokinesis. Please note that we were not able to see the left ventricle cavity due to suboptimal images therefore cannot rule out other wall motion abnormalities and cannot accurately measure ejection fraction. Study with contrast to assess EF and wall motion abnormality advised.Grade I/IV diastolic dysfunction (abnormal relaxation filling pattern), normal to mildly elevated filling pressures. Right Ventricle The right ventricle is normal in size and function. RVSP could not be calculated due to incomplete tricuspid regurgitation velocity profile. Right Atrium The right atrium is normal in size. Left Atrium The left atrium is normal in size. Mitral Valve Structurally normal mitral valve without significant stenosis or prolapse. There is no mitral regurgitation. Aortic Valve Aortic valve not well visualized probably normal Tricuspid Valve Structurally normal tricuspid valve without significant stenosis or regurgitation. Pulmonic Valve Structurally normal pulmonic valve without significant stenosis. There is no pulmonic regurgitation. Pericardium Normal pericardium without effusion. Aorta Normal ascending aorta dimension. CONCLUSIONS 1-Normal left ventricular cavity size. Moderately decreased left ventricular systolic function. Left ventricular ejection fraction is estimated at 45 %. There appeared to be anterior septal wall severe hypokinesis. Please note that we were not able to see the left ventricle cavity due to suboptimal images therefore cannot rule out other wall motion abnormalities and cannot accurately measure ejection fraction. Study with contrast to assess EF and wall motion abnormality advised.Grade I/IV diastolic dysfunction (abnormal relaxation filling pattern), normal to mildly elevated filling pressures. 2-Probably normal valves. Suboptimal images preclude full assessment 3-There is no pericardial effusion. 4-The right ventricle is normal in size and function. RVSP could not be calculated due to incomplete tricuspid regurgitation velocity profile. 5-There are no prior echocardiogram studies to compare. 6-Please repeat study with contrast Ezequiel Anguiano MD (Electronically Signed) Final Date: 20 April 2020 19:39 S
--- NOTE | 2020-04-20 06:15 | PC.NURSE ---
Lab called to tell nurse PTT had a clot in it and that they are coming to redraw.
--- NOTE | 2020-04-20 06:32 | PC.NURSE ---
Notified Dr. Anguiano of PTT hemolyzing and lab coming to redraw at this time. ORdered to wait for PTT to come back less than 45 to pull sheath.
[2020-04-20 06:46] LABS: Partial Thromboplastin Time 40.1 SECONDS (23.9-36.7)
--- NOTE | 2020-04-20 08:00 | CT_ITS ---
WS: [id number] CT CERVICAL SPINE HISTORY: Neck and RIGHT arm pain. TECHNIQUE: Contiguous 2.5 mm axial imaging performed through the entire cervical spine. Sagittal and coronal reformats also performed. All CT scans at [facility] use at least one of these do se optimization techniques: automated exposure control; mA and/or kV adjustment per patient size (inc ludes targeted exams where dose is matched to clinical indication); or iterative reconstruction. DLP: 888.23 mGy.cm COMPARISON: 09/22/2018 Mild straightening of the normal cervical lordosis. Mild degenerative disc space narrowing at C5-6 wi th osteophytes. Similar to the prior study. No fractures or destructive bone lesion. Mild LEFT convex curvature. C5-6: Mild osteophytic ridging encroaching into the foramen and central canal. Very minimal central s tenosis. Mild bilateral foraminal stenosis. Additional very mild osteophytic ridging. There is a cent ral disc protrusion without significant stenosis at C3-4. Mild dependent changes at the lung apices. CT/CT cervical spin wo con* [id number] IMPRESSION: 1. No cervical spine fracture. 2. Mild degenerative disc disease and osteophytes at C5-6. 3. Mild central and bilateral foraminal stenosis at C5-6 similar to the prior study.
[2020-04-20] MEDS: fentaNYL 50 mcg/mL INJ 2mL IVP (08:12)
[2020-04-20] MEDS: aspirin 81 mg EC Tablet PO (09:26)
[2020-04-20] MEDS: duloxetine 30 mg Capsule PO (09:26)
[2020-04-20] MEDS: lisinopril 10 mg Tablet PO (09:26)
--- NOTE | 2020-04-20 10:41 | P.PN_ITS ---
Subjective Subjective: Interval history: Chart reviewed, hemodynamically stable, afebrile. Came in as a STEMI alert and taken to the [facility], found to have chronic LAD occlusion with good collateral flow. Pending echo. Medications: Reviewed: Yes Medication Review Details: Active Medications Generic Name Dose Route Start Last Admin Trade Name Freq PRN Reason Stop Dose Admin Acetaminophen 650 mg 04/19/20 23:37 Tylenol PO Q6H PRN MILD PAIN Al Hydrox/Mg [place] x/Simethicone 30 ml 04/19/20 23:37 Maalox PO Q15M PRN INDIGESTION Aspirin 81 mg 04/20/20 09:00 04/20/20 09:26 Aspirin Ec PO 81 mg DAILY ARIANNA Administration Atorvastatin Calci um 40 mg 04/20/20 21:00 Lipitor PO BEDTIME ARIANNA Atropine Sulfate 0.5 mg 04/19/20 23:37 Atropine IVP PRN PRN Symptomatic sade cardia Duloxetine HCl 30 mg 04/20/20 09:00 04/20/20 09:26 Cymbalta PO 30 mg DAILY ARIANNA Administration Fentanyl 50 mcg 04/20/20 06:00 04/20/20 08:12 Sublimaze IVP 50 mcg ONCE PRN Administration SEVERE PAIN Sodium Chloride 1,000 mls @ 75 ml s/hr 04/20/20 00:01 04/20/20 00:44 Sodium Chloride 0.9% IV 75 mls/hr .[id number] ARIANNA Administration Lisinopril 10 mg 04/20/20 09:00 04/20/20 09:26 Prinivil PO 10 mg DAILY ARIANNA Administration Magnesium Hydroxid e 30 ml 04/19/20 23:37 Milk Of Magnesia PO DAILY PRN CONSTIPATION Morphine Sulfate 2 mg 04/20/20 00:01 Morphine IVP Q4H PRN SEVERE PAIN Naloxone HCl 0.1 mg 04/19/20 23:37 Narcan IVP Q2M PRN RESPIRATORY RATE < 8/MIN Nitroglycerin 0.4 mg 04/19/20 23:37 Nitrostat SUBLINGUAL Q5M PRN CHEST PAIN Senna/Docusate Sod ium 1 tab 04/20/20 09:00 04/20/20 09:28 Senna-S PO Not Given DAILY ARIANNA Temazepam 15 mg 04/19/20 23:37 Restoril PO BEDTIME PRN INSOMNIA Penicillins Allergy (Verified 04/20/20 00:03) ALGY-Hives Vitals/I&O/Wt Last Vital Signs Temp 97.7 F 04/19/20 23:38 Pulse 63 04/20/20 10:00 Resp 14 04/20/20 10:00 BP 131/82 04/20/20 10:00 Pulse Ox 98 04/20/20 10:00 04/19/20 04/20/20 04/20/20 22:59 06:59 14:59 Intake Total 100 / 100 120 / 120 Output Total 800 / 800 Balance 100 / 100 -680 / -680 Weight last 48 hrs Weight 99.79 kg Physical Exam Const: COMMON NORMALS: no acute distress, patient oriented x3 and alert GENERAL APPEARANCE: cooperative, comfortable and appears older than stated age ORIENTATION/CONSCIOUSNESS: Yes awake HENMT: COMMON NORMALS: normocephalic, atraumatic, hearing grossly normal bilaterally and moist oral mucous membranes HEAD & SCALP: normocephalic and atraumatic Eye: COMMON NORMALS: Equal, round and reactive pupils present, EOMs intact bilaterally and conjunctivae normal CONJUNCTIVA: Yes conjunctivae normal PUPIL: Yes Equal, round and reactive pupils present Neck/C-Spine: COMMON NORMALS: full ROM GENERAL: Yes normal visual inspection and Yes trachea midline Resp: COMMON NORMALS: normal respiratory effort, No retractions, No use of accessory muscles and clear to auscultation bilaterally EFFORT & INSPECTION: Yes able to speak in complete sentences, Yes symmetric chest movement and No tachypneic AUSCULTATION: clear to auscultation bilaterally Cardio: COMMON NORMALS: regular rate, regular rhythm, S1 normal heart sound pr esent, S2 normal heart sound present and No murmurs present (Cardio) RATE: regular rate RHYTHM: regular rhythm HEART SOUNDS: S1 normal heart sound present and S2 normal heart sound present GI: COMMON NORMALS: Normal to inspection, nondistended, normoactive bowel so unds present, Soft to palpation and non-tender PALPATION: Yes Soft to palpation : OTHER: -R cath site access site; no hematoma Extremity: COMMON NORMALS: normal to inspection, full ROM and no clubbing, cyanosis or edema; negative for no pedal edema Neuro: COMMON NORMALS: patient oriented x3, moves all extremities, no focal motor deficits, no sensory deficits noted and gait normal SENSORIUM/ORIENTATION: Yes alert Psych: COMMON NORMALS: mental status grossly normal, Normal thought process present, cooperative, normal affect and speech normal SPEECH: Yes normal speech THOUGHT PROCESS: Normal thought process present Skin: COMMON NORMALS: no rashes or lesions noted, no jaundice, no petechiae and no mottling GENERAL SKIN EXAM: no rashes or lesions noted Data : 04/20/20 02:00 04/20/20 02:00 A&P Assessment and plan (1) Chest pain: -Presented as STEMI alert with noted right-sided chest pain concerning for ACS due to some abnormal EKG changes -Status post coronary angiogram showing chronically occluded proximal LAD, nondominant small circumflex and dominant RCA with good collateral flow -Cardiology evaluation by Dr. Anguiano appreciated -On aspirin, statin -Noted A1c, TSH, lipid panel -Echo: EF=45%, G1DD, anterior septal wall severe hypokinesis -Chest x-ray unremarkable -Telemetry monitoring -Vital signs stable, continue to monitor -SANDRA -On gentle IVF hydration Status: Acute Qualifiers: Chest pain type: unspecified Qualified Code(s): R07.9 - Chest pain, unspecified (2) Neck pain: -Suspicious for radiculopathy -noted imaging of cervical and thoracic spine showing DJD -Pain control as needed Status: Chronic (3) Hypertension: -VSS, continue to monitor -On MERCY inhibitor Status: Chronic Qualifiers: Hypertension type: essential hypertension Qualified Code(s): I10 - Essential (primary) hypertension Additional A&P Information -Chronic smoker: nicotine replacement therapy -incidentally noted to have RUL pneumonia; start on Azithromycin; on RA, continue to monitor respiratory status -Cardiac diet as tolerated -DVT ppx with Lovenox once appropriate -Dispo: home -Code status: FULL code Attestations Medical Necessity Statement*: Patient requires hospitalization for continued post ACS care, pending Echo as well as workup for neck pain including CT imaging. Time Spent in Patient Care: Greater than 35 minutes (>than 50% of time spent in counselling and/or direct pt care on unit) . Coding Level of Care Code Acute Autocad Detailer for Chg Fwd Exam Comprehensive Diagnoses Chest pain R07.9 Chest pain type: unspecified Neck pain M54.2 Hypertension I10 Hypertension type: essential hypertension
[2020-04-20 10:57] LABS: Amphetamines Screen Urine Negative (Negative); Barbiturates Screen Urine Negative (Negative); Benzodiazepines Screen Urine Negative (Negative); Cocaine Screen Urine Negative (Negative); Opiate Screen Urine Positive (Negative); PCP Screen Urine Negative (Negative); THC Screen Urine Positive (Negative)
--- NOTE | 2020-04-20 12:44 | PC.RESP ---
SMOKING CESSATION INFORMATION SENT TO PATIENT.
--- NOTE | 2020-04-20 12:48 | PC.RESP ---
SMOKING CESSATION INFORMATION SENT TO PATIENT.
--- NOTE | 2020-04-20 13:39 | PM.PN ---
Subjective Subjective: Interval history: Denies any chest or arm pain. Pain is under control. Vitals are stable. Medications: Reviewed: Yes Medication Review Details: Active Medications Generic Name Dose Route Start Last Admin Trade Name Freq PRN Reason Stop Dose Admin Acetaminophen 650 mg 04/19/20 23:37 Tylenol PO Q6H PRN MILD PAIN Al Hydrox/Mg [place] x/Simethicone 30 ml 04/19/20 23:37 Maalox PO Q15M PRN INDIGESTION Aspirin 81 mg 04/20/20 09:00 04/20/20 09:26 Aspirin Ec PO 81 mg DAILY ARIANNA Administration Atorvastatin Calci um 40 mg 04/20/20 21:00 Lipitor PO BEDTIME ARIANNA Atropine Sulfate 0.5 mg 04/19/20 23:37 Atropine IVP PRN PRN Symptomatic sade cardia Duloxetine HCl 30 mg 04/20/20 09:00 04/20/20 09:26 Cymbalta PO 30 mg DAILY ARIANNA Administration Fentanyl 50 mcg 04/20/20 06:00 04/20/20 08:12 Sublimaze IVP 50 mcg ONCE PRN Administration SEVERE PAIN Sodium Chloride 1,000 mls @ 75 ml s/hr 04/20/20 00:01 04/20/20 00:44 Sodium Chloride 0.9% IV 75 mls/hr .[id number] ARIANNA Administration Lisinopril 10 mg 04/20/20 09:00 04/20/20 09:26 Prinivil PO 10 mg DAILY ARIANNA Administration Magnesium Hydroxid e 30 ml 04/19/20 23:37 Milk Of Magnesia PO DAILY PRN CONSTIPATION Morphine Sulfate 2 mg 04/20/20 00:01 Morphine IVP Q4H PRN SEVERE PAIN Naloxone HCl 0.1 mg 04/19/20 23:37 Narcan IVP Q2M PRN RESPIRATORY RATE < 8/MIN Nitroglycerin 0.4 mg 04/19/20 23:37 Nitrostat SUBLINGUAL Q5M PRN CHEST PAIN Senna/Docusate Sod ium 1 tab 04/20/20 09:00 04/20/20 09:28 Senna-S PO Not Given DAILY ARIANNA Temazepam 15 mg 04/19/20 23:37 Restoril PO BEDTIME PRN INSOMNIA Penicillins Allergy (Verified 04/20/20 00:03) ALGY-Hives Vitals/I&O/Wt Last Vital Signs Temp 97.6 F 04/20/20 11:07 Pulse 58 L 04/20/20 11:07 Resp 23 H 04/20/20 11:07 BP 137/88 04/20/20 11:07 Pulse Ox 98 04/20/20 11:07 04/19/20 04/20/20 04/20/20 22:59 06:59 14:59 Intake Total 100 / 100 120 / 120 Output Total 800 / 800 Balance 100 / 100 -680 / -680 Weight last 48 hrs Weight 220 lb Physical Exam Narrative: EXAM NARRATIVE: GENERAL: Patient is alert, awake and oriented x3. NECK: No jugular vein distension. HEENT: No cyanosis. No icterus. No pallor. HEART: Regular S1 and S2. No murmur, rub or gallop. LUNGS: Clear to auscultate bilaterally. ABDOMEN: Soft, nontender and nondistended. Positive bowel sounds. No guarding, rebound or tenderness. CENTRAL NERVOUS SYSTEM: Grossly nonfocal. EXTREMITIES: Lower extremities without edema bilaterally. Data : 04/20/20 02:00 04/20/20 02:00 A&P Assessment and plan (1) Chest pain: Most likely due to radiculopathy however patient has significant coronary artery disease. He has chronically occluded LAD. Please see under CAD. Pain management as per medicine. Status: Acute Qualifiers: Chest pain type: unspecified Qualified Code(s): R07.9 - Chest pain, unspecified (2) Hypertension: Blood pressure is controlled continue current medicines. Status: Chronic Qualifiers: Hypertension type: essential hypertension Qualified Code(s): I10 - Essential (primary) hypertension (3) CAD (coronary artery disease): Patient is significant coronary artery disease he has a chronically occluded proximal LAD fills retrogradely through right to left collaterals from RCA. He has nondominant circumflex which is very small caliber and size vessel. There is no significant disease right. Left main was also normal. Patient is not on any medicine I will start him on carvedilol statin isosorbide mononitrate. Echocardiogram will be obtained. Since it is not acute coronary syndrome. Dual antiplatelet therapy will be discontinued Status: Acute Attestations Medical Necessity Statement*: Patient require continuation hospitalization for optimization of medicine. Coding Level of Care Code Established Pt Acute Business Analyst Project Manager for Chg Fwd Patient Type Established History Expanded Problem Focused Exam Expanded Problem Focused Medical Decision Making Moderate Complexity Diagnoses Chest pain R07.9 Chest pain type: unspecified Hypertension I10 Hypertension type: essential hypertension CAD (coronary artery disease) I25.10
--- NOTE | 2020-04-20 14:18 | PC.NURSE ---
DR. HUTCHINSON REQUESTED PATIENT'S IV FLUIDS BE DISCONTINUED.
--- NOTE | 2020-04-20 14:38 | PC.NURSE ---
Addendum entered by Gina Mooney RN 04/20/20 14:47: PATIENT REQUESTED TO SEE HIS BELONGINGS FROM THE ROOM CLOSET. PATIENT BELONGINGS (PANTS, SHIRT, SHOES, KEYS AND WALLET) ARE ACCOUNTED FOR. PATIENT STATED THAT WHEN HE CAME IN HE HAD TWO $100 BILLS IN HIS WALLET PLUS A WAD OF ZAVALETA . PATIENT STATES THAT ONE OF THE $100 BILLS IS MISSING. NURSE HAD THE PATIENT TO COUNT ALL THE MONEY THAT WAS CURRENTLY PRESENT IN HIS WALLET, WHICH WAS $180. PATIENT IS ADAMANT THAT HE HAD AN EXTRA $100 BILL IN HIS WALLET AT TIME OF ADMISSION, AND THAT HE COULDN'T REMEMBER WHERE HE HAD TO REMOVE HIS PANTS THAT CONTAINED HIS WALLET, WHETHER IN THE ER OR ROAD TRAFFIC CONTROLLER. NURSE CHIPPER OPERATOR, ADDIS, NOTIFIED OF THE CURRENT SITUATION. Original Note: PATIENT WALLET PATIENT HAS $180 PRESENT IN HIS WALLET AT BEDSIDE.
--- NOTE | 2020-04-20 16:36 | PC.NURSE ---
CIGARETTES AND TEMPER MILL ROLLER REMOVED FROM PATIENT'S ROOM.
[2020-04-20] MEDS: carvedilol 3.125 mg Tablet PO (17:05)
--- NOTE | 2020-04-20 18:34 | PC.NURSE ---
PATIENT HAD NOT WANTED TO AMBULATE WHEN HIS TIME TO COME OFF BEDREST AT 1410 ARRIVED. HE STATED HE WANTED TO REST. HE DID ROLL TO HIS SIDE, HOWEVER. HE AMBULATED THIS EVENING WITH NO ISSUES.
[2020-04-20] MEDS: atorvastatin 40 mg Tablet PO (20:52)
--- NOTE | 2020-04-20 21:11 | PC.NURSE ---
Patient has no complaints at this time. Patient states he is tired and wants to sleep. Right groin dressing WNL. Will monitor.
--- NOTE | 2020-04-20 23:46 | PC.NURSE ---
Patient has no complaints at this time. Right groin site/dressing WNL. Will monitor.
[2020-04-21 03:17] VITALS: BP 112/83; PULSE 75; RESP 17; TEMP 36.7; O2SAT 95
[2020-04-21 07:12] VITALS: BP 127/88; PULSE 70; RESP 16; TEMP 36.5; O2SAT 96
[2020-04-21] MEDS: duloxetine 30 mg Capsule PO (08:09)
[2020-04-21] MEDS: aspirin 81 mg EC Tablet PO (08:09)
[2020-04-21] MEDS: lisinopril 10 mg Tablet PO (08:09)
[2020-04-21] MEDS: azithromycin 250 mg Tablet 500 MG PO (08:09)
[2020-04-21] MEDS: carvedilol 3.125 mg Tablet PO (08:09)
[2020-04-21 08:10] VITALS: RESP 20
[2020-04-21] MEDS: morphine 4 mg/mL SDV 1 mL 2 MG IVP (08:10)
[2020-04-21 11:41] VITALS: BP 123/71; PULSE 71; RESP 15; TEMP 36.7; O2SAT 95
--- NOTE | 2020-04-21 14:05 | PM.DCS ---
Discharge Providers Date of Admission: 04/19/20 23:49 Date of Discharge: April 21, 2020 Attending Provider at Admission: Ezequiel Anguiano MD Attending Provider at Discharge: Keiry Mcleod MD Consults: Cardiology, Dr. Anguiano Primary Care Provider: [facility] Diagnoses at Discharge Discharge Diagnosis (1) Chest pain: Status: Acute Problem details: -Presented as STEMI alert with noted right-sided chest pain concerning for ACS due to some abnormal EKG changes -Status post coronary angiogram showing chronically occluded proximal LAD, nondominant small circumflex and dominant RCA with good collateral flow -Cardiology evaluation by Dr. Anguiano appreciated -On aspirin, statin -Noted A1c, TSH, lipid panel -Echo: EF=45%, G1DD, anterior septal wall severe hypokinesis -Chest x-ray unremarkable -Telemetry monitoring -Vital signs stable, continue to monitor -SANDRA -Off IVF Qualifiers: Chest pain type: unspecified Qualified Code(s): R07.9 - Chest pain, unspecified (2) Neck pain: Status: Chronic Problem details: -Suspicious for radiculopathy -noted imaging of cervical and thoracic spine showing DJD -Pain control as needed (3) Hypertension: Status: Chronic Problem details: -VSS, continue to monitor -On MERCY inhibitor Qualifiers: Hypertension type: essential hypertension Qualified Code(s): I10 - Essential (primary) hypertension Other Information Additional DC diagnoses/information: -Chronic smoker: nicotine replacement therapy -incidentally noted to have RUL pneumonia; start on Azithromycin; on RA, continue to monitor respiratory status Reason for Visit Reason for Visit: chest pain Hospital Course Hospital Course: Patient is admitted to the cardiac stepdown unit and continued on medical management following coronary angiogram done due to patient's chest pain and noted EKG changes on arrival. He was seen by Dr. Anguiano who did the angiogram with noted chronic LAD occlusion with good collateral flow. He did not require any intervention or stenting. He was continued on medical management and echo done with noted ejection fraction of 45%, grade 1 diastolic dysfunction. He had also presented with neck pain suspicious for radiculopathy so had imaging of the cervical and thoracic spine showing multilevel DJD and may benefit from nerve conduction study. He will likely require follow-up with neurology versus neurosurgery. Incidentally he was noted to have evidence of right upper lobe pneumonia on imaging with noted leukocytosis as well so was started on empiric azithromycin. He has been hemodynamically stable, afebrile and maintained on room air. He will need to continue this for several more days to complete his treatment course. He will need follow-up with cardiology, in 1 week with Kandace West for cath site check and in [address] to [address] Anguiano. He is to seek medical attention immediately should any of his symptoms recur or worsen. Discharge Summary: -Patient to follow-up with primary care provider within 1 week -Patient to follow-up with Kandace West at [facility] care [facility] in 1 week for cath site check and labs -Patient to follow-up with Dr. Anguiano in 4 to 6 weeks Physical Exam Const: COMMON NORMALS: no acute distress, patient oriented x3 and alert GENERAL APPEARANCE: cooperative, comfortable and appears older than stated age ORIENTATION/CONSCIOUSNESS: Yes awake HENMT: COMMON NORMALS: normocephalic, atraumatic, hearing grossly normal bilaterally and moist oral mucous membranes HEAD & SCALP: normocephalic and atraumatic Eye: COMMON NORMALS: Equal, round and reactive pupils present, EOMs intact bilaterally and conjunctivae normal CONJUNCTIVA: Yes conjunctivae normal PUPIL: Yes Equal, round and reactive pupils present Neck/C-Spine: COMMON NORMALS: full ROM GENERAL: Yes normal visual inspection and Yes trachea midline Resp: COMMON NORMALS: normal respiratory effort, No retractions, No use of accessory muscles and clear to auscultation bilaterally EFFORT & INSPECTION: Yes able to speak in complete sentences, Yes symmetric chest movement and No tachypneic AUSCULTATION: clear to auscultation bilaterally Cardio: COMMON NORMALS: regular rate, regular rhythm, S1 normal heart sound present, S2 normal heart sound present and No murmurs present (Cardio) RATE: regular rate RHYTHM: regular rhythm HEART SOUNDS: S1 normal heart sound present and S2 normal heart sound present GI: COMMON NORMALS: Normal to inspection, nondistended, normoactive bowel sounds present, Soft to palpation and non-tender PALPATION: Yes Soft to palpation : OTHER: -R cath site access site; no hematoma Extremity: COMMON NORMALS: normal to inspection, full ROM and no clubbing, cyanosis or edema; negative for no pedal edema Neuro: COMMON NORMALS: patient oriented x3, moves all extremities, no focal motor deficits, no sensory deficits noted and gait normal SENSORIUM/ORIENTATION: Yes alert Psych: COMMON NORMALS: mental status grossly normal, Normal thought process present, cooperative, normal affect and speech normal SPEECH: Yes normal speech THOUGHT PROCESS: Normal thought process present Skin: COMMON NORMALS: no rashes or lesions noted, no jaundice, no petechiae and no mottling GENERAL SKIN EXAM: no rashes or lesions noted Discharge Data Data Completed and Pending: Completed Studies During Hospitalization Category Date Time Status CT cervical spine wo con [CT cervic al spin wo con* Cat Scan 04/20/20 08:00 Completed [id number]] Routine CT thoracic spin wo con* [id number] Rout ine Cat Scan 04/20/20 00:41 Completed XR chest 1V ana maria ble [id number] Stat Exams 04/19/20 21:54 Completed CV echo complete* [id number] Routine Ultrasound 04/20/20 06:00 Completed Pending at discharge Category Date Time Status MIX HOUSE TENDER request for service Stat Exams 04/19/20 22:29 Taken Vitals: Last Vital Signs Temp 98.1 F 04/21/20 11:41 Pulse 71 04/21/20 11:41 Resp 15 04/21/20 11:41 BP 123/71 04/21/20 11:41 Pulse Ox 95 04/21/20 11:41 Discharge Plan Discharge Patient Disposition: Home Condition: Stable Prescriptions: New atorvastatin 40 mg Tablet 40 mg PO BEDTIME Qty: 30 RF: 0 azithromycin 250 mg Tablet 250 mg PO DAILY Qty: 4 RF: 0 aspirin 81 mg Tablet,Delayed Release (Dr/Ec) 81 mg PO DAILY Qty: 30 RF: 0 carvedilol 3.125 mg Tablet 3.125 mg PO BID Qty: 60 RF: 0 lisinopril 10 mg Tablet 10 mg PO DAILY Qty: 30 RF: 0 duloxetine 30 mg Capsule,Delayed Release(Dr/Ec) 30 mg PO DAILY Qty: 30 RF: 0 Discontinued propranolol 60 mg Tablet 60 mg PO BID RF: 0 Discharge Orders: Discharge Order (Routine); Ordered 04/21/20 Ordered By: Keiry Mcleod Referrals: Ezequiel Anguiano MD [Physician] - 6 Weeks Kandace West FNP [Nurse Practitioner] - 1 week (Cath site check, follow up labs) [facility] [Primary Care Provider] - 4-7 days Discharge Diet: Cardiac Discharge Activity: Increase activity as tolerated Discharge Attestations Time Spent in Discharge Care*: less than 30 min Specific Discharge Activities: Specific discharge activities: educating patient, educating and/or supporting family/caregiver, discussing with case manager specialist/social workers/dc planners, documenting/other paperwork and evaluating patient/reviewing data Status at Discharge: Cognitive status at discharge: cognitively intact, Behavioral status at discharge: cooperative, Functional status at discharge: independent ambulation Overall status at discharge: patient is progressing back to baseline Quality Metrics Clinical Quality Measures During this hospital stay, did patient experience: None Coding Level of Care Code Acute Rn Urgent Care for Nichol Mancini Diagnoses Chest pain R07.9 Chest pain type: unspecified Neck pain M54.2 Hypertension I10 Hypertension type: essential hypertension
[2020-04-21 15:21] VITALS: BP 123/71; PULSE 71; RESP 15; TEMP 36.7; O2SAT 95
--- NOTE | 2020-04-21 20:12 | PM.PN ---
Subjective Subjective: Interval history: Patient had solid waste analyst neck right arm and chest pain. There was no EKG changes he would like to go back home. Medications: Reviewed: Yes Medication Review Details: Active Medications Generic Name Dose Route Start Last Admin Trade Name Freq PRN Reason Stop Dose Admin Acetaminophen 650 mg 04/19/20 23:37 Tylenol PO Q6H PRN MILD PAIN Al Hydrox/Mg [place] x/Simethicone 30 ml 04/19/20 23:37 Maalox PO Q15M PRN INDIGESTION Aspirin 81 mg 04/20/20 09:00 04/20/20 09:26 Aspirin Ec PO 81 mg DAILY ARIANNA Administration Atorvastatin Calci um 40 mg 04/20/20 21:00 Lipitor PO BEDTIME ARIANNA Atropine Sulfate 0.5 mg 04/19/20 23:37 Atropine IVP PRN PRN Symptomatic sade cardia Duloxetine HCl 30 mg 04/20/20 09:00 04/20/20 09:26 Cymbalta PO 30 mg DAILY ARIANNA Administration Fentanyl 50 mcg 04/20/20 06:00 04/20/20 08:12 Sublimaze IVP 50 mcg ONCE PRN Administration SEVERE PAIN Sodium Chloride 1,000 mls @ 75 ml s/hr 04/20/20 00:01 04/20/20 00:44 Sodium Chloride 0.9% IV 75 mls/hr .[id number] ARIANNA Administration Lisinopril 10 mg 04/20/20 09:00 04/20/20 09:26 Prinivil PO 10 mg DAILY ARIANNA Administration Magnesium Hydroxid e 30 ml 04/19/20 23:37 Milk Of Magnesia PO DAILY PRN CONSTIPATION Morphine Sulfate 2 mg 04/20/20 00:01 Morphine IVP Q4H PRN SEVERE PAIN Naloxone HCl 0.1 mg 04/19/20 23:37 Narcan IVP Q2M PRN RESPIRATORY RATE < 8/MIN Nitroglycerin 0.4 mg 04/19/20 23:37 Nitrostat SUBLINGUAL Q5M PRN CHEST PAIN Senna/Docusate Sod ium 1 tab 04/20/20 09:00 04/20/20 09:28 Senna-S PO Not Given DAILY ARIANNA Temazepam 15 mg 04/19/20 23:37 Restoril PO BEDTIME PRN INSOMNIA Penicillins Allergy (Verified 04/20/20 00:03) ALGY-Hives Vitals/I&O/Wt Last Vital Signs Temp 98.1 F 04/21/20 15:21 Pulse 71 04/21/20 15:21 Resp 15 04/21/20 15:21 BP 123/71 04/21/20 15:21 Pulse Ox 95 04/21/20 15:21 04/21/20 04/21/20 04/21/20 06:59 14:59 22:59 Intake Total 480 / 480 Balance 480 / 480 Weight last 48 hrs Weight 220 lb Physical Exam Narrative: EXAM NARRATIVE: GENERAL: Patient is alert, awake and oriented x3. NECK: No jugular vein distension. HEENT: No cyanosis. No icterus. No pallor. HEART: Regular S1 and S2. No murmur, rub or gallop. LUNGS: Clear to auscultate bilaterally. ABDOMEN: Soft, nontender and nondistended. Positive bowel sounds. No guarding, rebound or tenderness. CENTRAL NERVOUS SYSTEM: Grossly nonfocal. EXTREMITIES: Lower extremities without edema bilaterally. Data : 04/20/20 02:00 04/20/20 02:00 A&P Assessment and plan (1) Chest pain: Noncardiac pain most likely due to radiculopathy. Status: Acute Qualifiers: Chest pain type: unspecified Qualified Code(s): R07.9 - Chest pain, unspecified (2) Hypertension: Stable. Continue meds Status: Chronic Qualifiers: Hypertension type: essential hypertension Qualified Code(s): I10 - Essential (primary) hypertension (3) CAD (coronary artery disease): Patient is significant coronary artery disease he has a chronically occluded proximal LAD fills retrogradely through right to left collaterals from RCA. He has nondominant circumflex which is very small caliber and size vessel. There is no significant disease right. Left main was also normal. Patient is not on any medicine I will start him on carvedilol statin isosorbide mononitrate. Echocardiogram will be obtained. Since it is not acute coronary syndrome. Dual antiplatelet therapy will be discontinued Patient has been started on Coreg atorvastatin aspirin continue MERCY inhibitor. Continue to follow with cardiology. Status: Acute Attestations Medical Necessity Statement*: Require continuation hospitalization for above defined care. Coding Level of Care Code Established Pt Acute Construction Project Administrator for Chg Fwd Patient Type Established History Expanded Problem Focused Exam Expanded Problem Focused Medical Decision Making Moderate Complexity Diagnoses Chest pain R07.9 Chest pain type: unspecified Hypertension I10 Hypertension type: essential hypertension CAD (coronary artery disease) I25.10
== END 2020-04-21 16:45 | disposition home or self-care (01) | DRG 250 ==
LOC: ER 22:28 → CCL 22:31 → CSU 23:49
PROVIDERS: Emergency Medicine; Internal Medicine; Admitting Provider Internal Medicine Cardiovascular Disease; Visit Provider Family Medicine
PROC: 02703ZZ Dilation of Coronary Artery, One Artery, Percutaneous Approach (ICD-10-PCS; principal; 2020-04-19 22:00)
PROC: 02703ZZ Dilation of Coronary Artery, One Artery, Percutaneous Approach (ICD-10-PCS; 2020-04-19 22:00)
DX: I24.9 Acute ischemic heart disease, unspecified (principal); J18.9 Pneumonia, unspecified organism; I10 Essential (primary) hypertension; M47.899 Other spondylosis, site unspecified; G89.29 Other chronic pain; M54.2 Cervicalgia; I25.10 Atherosclerotic heart disease of native coronary artery without angina pectoris; F17.210 Nicotine dependence, cigarettes, uncomplicated
CPT/HCPCS: 12345; 36415; 71045; 72125; 72128; 80048; 80053; 80061; 80306; 82550; 83036; 83880; 84443; 84484; 85025; 85610; 85730; 92920; 93306; 93454; 96375; 99283; C1725; C1760; C1769; C1887; C1894; J1644; J2250; J2270; J2405; J3010; J7030; Q0144; Q9967

== ENCOUNTER → 2020-04-29 10:44 | Outpatient (BNVA) | payer OTHER, SELFPAY | PROVIDERS: Visit Provider Nurse Practitioner Family | DX: I25.10 Atherosclerotic heart disease of native coronary artery without angina pectoris (principal) | CPT/HCPCS: 80048 ==

== ENCOUNTER 2020-06-30 12:59 | Outpatient (CLI) | payer OTHER, SELFPAY ==
--- NOTE | 2020-06-30 13:23 | CT_ITS ---
WS: [id number] CTA THORACIC TECHNIQUE: Contrast enhanced CTA of the thoracic aorta with coronal and sagittal reformatted images a nd maximum intensity projection (MIP) images. CLINICAL INFORMATION: ISCHEMIA/PVD COMPARISON: Comparison CT thoracic spine April 20, 2020 DLP: 1368.[address] scans at [facility] use at least one of these dose optimization techniques: automat ed exposure control; mA and/or kV adjustment per patient size (includes targeted exams where dose is matched to clinical indication); or iterative reconstruction. FINDINGS: Normal caliber thoracic aorta. No evidence of aortic dissection or intramural hematoma. Mild atheroma tous disease aortic arch. Normal caliber ascending and descending thoracic aorta. Upper abdominal aor ta is normal caliber. Normal proximal main pulmonary arteries. Enlarged lymph node right hilum measuring 12 mm. Mild chroni c emphysematous changes. Previously described infiltrates in right upper lobe have resolved since the prior CT thoracic spine. No acute pulmonary infiltrates today. No focal pneumonia or pleural fluid. No axillary lymphadenopathy. Adrenal glands are normal. Splenic granulomas. Small splenule. Normal th oracic spine. CT/CT angio chest [id number] IMPRESSION: 1. Normal thoracic aorta. Mild aortic arch atheromatous disease. No thoracic a ortic aneurysm. 2. Right upper lobe pneumonia has resolved compared to the prior examination. 3. Enlarged right hilar lymph node measuring 12 mm may be reactive but is nons pecific. Recommend 3-6 month follow-up. 4. Mild chronic emphysematous changes. No acute pulmonary infiltrates today. 5. No other significant findings.
[2020-06-30] MEDS: iohexol 350 mg/mL 100 mL Btl IV (14:19)
== END 2020-06-30 13:00 | disposition home or self-care (01) ==
LOC: RAD 13:03
PROVIDERS: PCP Emergency Medicine Emergency Medical Services; Visit Provider Emergency Medicine Emergency Medical Services
DX: I73.9 Peripheral vascular disease, unspecified (principal); I99.8 Other disorder of circulatory system; R59.9 Enlarged lymph nodes, unspecified; J18.8 Other pneumonia, unspecified organism
CPT/HCPCS: 71275

== ENCOUNTER → 2020-07-27 10:46 | Outpatient (BNVA) | payer OTHER, SELFPAY | PROVIDERS: PCP Emergency Medicine Emergency Medical Services; Visit Provider Specialist | DX: M79.601 Pain in right arm (principal); M79.602 Pain in left arm; G56.23 Lesion of ulnar nerve, bilateral upper limbs | CPT/HCPCS: 95908 ==

== ENCOUNTER 2020-09-04 12:40 | Outpatient (CLI) | payer OTHER, SELFPAY ==
--- NOTE | 2020-09-04 12:53 | MR_ITS ---
WS: [id number] MRI CERVICAL SPINE NONCONTRAST TECHNIQUE: Sagittal T1, T2 and STIR imaging. Axial T2, gradient, and fiesta imaging. CLINICAL INFORMATION: CERVICAL RADICULITIS COMPARISON: None. FINDINGS: Straightening of the normal cervical lordosis. Mild disc bulging worse at C3-C4 and C5-C6. Slight con tact the cervical cord. Cord signal is normal. C2-C3: Normal. C3-C4: Mild disc bulging with a small central disc protrusion. Slight contact of the cervical cord. M ild central canal stenosis. Mild left and no significant right foraminal narrowing. Mild facet arthro cabrera. C4-C5: Mild disc osteophytic ridging. Mild left and no significant right foraminal narrowing. Spinal canal is patent. Mild facet arthropathy. C5-C6: Disc osteophyte complex with endplate ridging. Mild central canal stenosis with slight contact of the cervical cord. Moderate to severe right and moderate left bony foraminal narrowing. Mild face t arthropathy. C6-C7: Tiny shallow central protrusion. Slight effacement of the ventral thecal sac. Spinal canal is patent. Mild to moderate bilateral foraminal narrowing. Mild facet arthropathy. C7-T1: Mild left and no significant right foraminal narrowing. Spinal canal is patent. Visualized brain stem structures: Normal. Prevertebral soft tissues: Normal. Small retention cyst right maxillary sinus. MR/MR cervical spin wo con* [id number] IMPRESSION: 1. Straightening of the normal cervical lordosis. Cord signal is normal. 2. Mild central canal stenosis C3-C4 and C5-C6 with shallow central disc protr usions. Central canal stenosis more prominent at C5-C6. 3. Bony foraminal narrowing worse at left C4-C5, bilateral C5-C6 worse in the right, and bilateral C6-7.
== END 2020-09-04 12:41 | disposition home or self-care (01) ==
LOC: RADSHAW 12:44
PROVIDERS: PCP Emergency Medicine Emergency Medical Services; Visit Provider Emergency Medicine Emergency Medical Services
DX: M54.12 Radiculopathy, cervical region (principal); M48.02 Spinal stenosis, cervical region; M50.223 Other cervical disc displacement at C6-C7 level
CPT/HCPCS: 72141